=== PATIENT | male | born 1990 | race Caucasian/White ===

== ENCOUNTER 2019-05-17 11:07 | Outpatient (NON) | payer OTHER, SELFPAY ==
[2019-05-18 15:13] LABS: Pan-SARS RNA: NEGATIVE (NEGATIVE); SARS-CoV-2 RNA: NEGATIVE (NEGATIVE)
== END 2019-05-17 11:08 ==
PROVIDERS: PCP Family Medicine; Visit Provider Family Medicine
DX: R09.89 Other specified symptoms and signs involving the circulatory and respiratory systems (principal); Z20.828 Contact with and (suspected) exposure to other viral communicable diseases
CPT/HCPCS: 87635; C9803; U0002; U0003

== ENCOUNTER 2019-10-11 14:35 | Emergency (ER) | payer BC, SELFPAY ==
--- NOTE | ~2019-10-11 | XR_ITS ---
EXAMINATION: XR chest 2V DATE: 10/11/2019 15:06 INDICATION: Chest pain TECHNIQUE: PA and lateral views of the chest are obtained. COMPARISON: 03/12/2014 FINDINGS: The lungs are free of acute opacities. There is no pleural effusion or pneumothorax. The ca rdiomediastinal silhouette is normal. The visualized bones and soft tissues are unremarkable. IMPRESSION: 1. No acute cardiopulmonary abnormality. Reviewed, dictated and finalized at location A.
--- NOTE | 2019-10-11 14:41 | ECG_ITS ---
Measurements Intervals [place] Rate: 89 P: 64 [place]: 140 QRS: 26 QRSD: 94 T: 25 QT: 334 QTc: 407 Interpretive Statements SINUS RHYTHM FREQUENT ATRIAL PREMATURE COMPLEXES INCOMPLETE RIGHT BUNDLE BRANCH BLOCK LOW QRS VOLTAGE IN PRECORDIAL LEADS BASELINE ARTIFACT- I, III, AVL ABNORMAL ECG Electronically Signed On 10-11-2019 16:31:21 CDT by Shade Martinez D.O.
[2019-10-11 14:42] VITALS: BP 142/82; PULSE 93; RESP 29; TEMP 36.8; O2SAT 98
[2019-10-11 14:50] VITALS: PULSE 84
[2019-10-11 14:51] VITALS: BP 142/82; PULSE 102; RESP 17; O2SAT 100
[2019-10-11 15:02] LABS: Basophils Percent Auto 0.4 % (0.2-1.2); Eosinophils Absolute Auto 0.1 K/mm3 (0-0.3); Eosinophils Percent Auto 1.4 % (0-4.4); Hematocrit 43.1 % (42.0-52.0); Hemoglobin 14.8 g/dL (14.0-18.0); Immature Granulocyte Absolute 0.05 K/mm3 (0.00-0.031); Immature Granulocyte Percent A 0.6 % (0-0.5); Lymphocytes Absolute Auto 1.79 K/mm3 (0.9-3.2); Lymphocytes Percent Auto 21.4 % (18.3-44.2); Mean Corpuscular HGB Conc 34.3 g/dl (32-36); Mean Corpuscular Volume 87.4 fl (80-100); Mean Platelet Volume 10.3 fl (7.4-10.4); Monocytes Absolute Auto 0.4 K/mm3 (0.1-0.6); Monocytes Percent Auto 5.3 % (2.6-8.5); Neutrophils Absolute Auto 5.9 K/mm3 (1.3-6.7); Neutrophils Percent Auto 70.9 % (45.5-73.1); Platelet Count Result 275 k/mm3 (150-375); Red Blood Count 4.93 M/mm3 (4.6-6.20); Red Cell Distribution Width 13.3 % (11.5-14.5); White Blood Count 8.4 K/mm3 (4.5-10.0)
[2019-10-11 15:12] LABS: Anion Gap 8 mmol/L (8-16); Blood Urea Nitrogen 14 mg/dL (9-20); Calcium 8.8 mg/dL (8.4-10.2); Carbon Dioxide 28 mmol/L (22-30); Chloride 101 mmol/L (98-107); Estimated CRCL calculation 95 ml/min; Estimated Glomerular Filt Rate > 60; Glucose 111 mg/dL (75-110); Potassium 3.4 mmol/L (3.4-5.0); Sodium 137 mmol/L (137-145)
[2019-10-11 15:15] LABS: Prothrombin Time 12.7 Seconds (11.1-14.7)
--- NOTE | 2019-10-11 15:15 | ED.CHESTPAIN ---
HPI - Chest Pain General Chief Complaint: Chest Pain Stated Complaint: cp Time Seen by Provider: 10/11/19 15:15 Source: patient Mode of arrival: ambulatory Limitations: no limitations History of Present Illness HPI narrative: 29 years old white male presents with intermittent shooting pain bilaterally started 2 weeks ago worse with the stress. Patient was started on Lexapro 10 mg a day 3 weeks ago for anxiety and depression. Patient denies any fever, chills, nausea, vomiting, shortness of breath, back pain or abdominal pain. Patient also denied any history of drug use except for marijuana. EKG on arrival showed normal sinus rhythm rate 89 bpm with frequent supraventricular premature complexes. Related Data Home Medications Medication Instructions Recorded Confirmed escitalopram oxalate [Lexapro] mg DAILY 10/11/19 Allergies Allergy/AdvReac Type Severity Reaction Status Date / Time No Known Allergies Allergy Unverified 10/11/19 14:48 Review of Systems Review of Systems: Narrative: CONSTITUTIONAL: Denies fever, chills, or sweats. EYES: Denies visual changes, redness, or discharge. ENT: Denies rhinorrhea, congestion, sore throat, or otalgia. CARDIOVASCULAR: Denies chest pain, palpitations, or edema. RESPIRATORY: Denies cough or dyspnea. GASTROINTESTINAL: Denies abdominal pain, nausea, vomiting, or diarrhea. GENITOURINARY: Denies dysuria or hematuria. SKIN: Denies rash or itching. MUSCULOSKELETAL: Denies back pain, joint pain, or myalgia. NEUROLOGIC: Denies headache, numbness, or weakness. PSYCHIATRIC: Denies anxiety or depression. [facility] Past Medical History Medical History (Updated 10/11/19 @ 15:32 by Julio Miller MD) Anxiety Depression Social History Social History Gender identity (if verbalized by the patient): Male Sexual Orientation (if Verbalized by the Patient): Straight or Heterosexual Exam Narrative: Exam Narrative: General appearance: Well-developed, well-nourished Skin: Normal color Head: Normocephalic, nontraumatic Eyes: Clear conjunctiva ENT: Oropharynx normal, ears normal, nose normal Neck: Supple, nontender Chest and respiratory: Airway patent, no respiratory distress, no accessory muscle use Heart: Regular rate/rhythm Abdomen: Soft, nontender, no organomegaly, quiet bowel sounds Vascular: Normal peripheral pulses, normal capillary refill. Musculoskeletal: Normal range of motion, nontender back Neurologic: Alert and oriented ?3, [employer] is normal as tested, no gross motor deficit Course Course Emergency Course: Stable Vital Signs Vital signs: Vital Signs Temperature 36.8 C 10/11/19 14:42 Pulse Rate 93 10/11/19 14:42 Respiratory Rate 29 H 10/11/19 14:42 Blood Pressure 142/82 H 10/11/19 14:42 Pulse Oximetry 98 10/11/19 14:42 Temperature 36.8 C 10/11/19 14:42 Pulse Rate 102 H 10/11/19 14:51 Respiratory Rate 17 10/11/19 14:51 Blood Pressure 142/82 H 10/11/19 14:51 Pulse Oximetry 100 10/11/19 14:51 MDM - Chest Pain MDM Narrative Medical decision making narrative: Patient does not have any coronary artery risk factors except positive family history for coronary artery disease. Patient started on antidepression medication 3 weeks ago. Anxiety/depression is my concern. My plan to get labs, chest x-ray and EKG. Then discharge patient on Lexapro 20 mg once a day instead of 10 mg. Differential Diagnosis Differential diagnosis: Likely atypical chest pain, costochondritis, chest pain and other (Anxiety, depression) Lab Data Result diagrams: 10/11/19 14:54 10/11/19 14:54 Labs: Lab Results
[2019-10-11 15:16] LABS: Partial Thromboplastin Time 28.6 SECONDS (22.3-36.8)
[2019-10-11] MEDS: ASPIRIN 81 MG CHEWABLE TABLET 324 MG PO (15:21)
[2019-10-11 15:24] LABS: Troponin I < 0.012 ng/mL (0.000-0.034)
[2019-10-11 16:07] VITALS: BP 114/74; PULSE 86; RESP 12; O2SAT 96
[2019-10-11 16:40] LABS: Amphetamine Screen Urine Negative (Negative); Barbiturate Screen Urine Negative (Negative); Benzodiazepines Screen Urine Negative (Negative); Cannabinoid Screen Urine Positive (Negative); Cocaine Screen Urine Negative (Negative); Methadone Screen Urine Negative (Negative); Opiate Screen Urine Negative (Negative); Phencyclidine Screen Urine Negative (Negative)
== END 2019-10-11 16:09 | disposition home or self-care (01) ==
PROVIDERS: Emergency Medicine; Emergency Provider Emergency Medicine; PCP Family Medicine
DX: R07.89 Other chest pain (principal); F41.9 Anxiety disorder, unspecified; F32.9 Major depressive disorder, single episode, unspecified; I49.1 Atrial premature depolarization; I45.10 Unspecified right bundle-branch block
CPT/HCPCS: 36415; 71046; 80048; 80307; 84484; 85025; 85610; 85730; 93005; 99284; A9270

== ENCOUNTER 2019-10-28 14:15 | Emergency (ER) | payer SELFPAY ==
[2019-10-28 14:24] VITALS: BP 127/78; PULSE 87; RESP 16; TEMP 35.8; O2SAT 99
--- NOTE | 2019-10-28 14:24 | ED.EYEPROB ---
HPI - Eye Problem General Chief complaint: Eye Problems Stated complaint: right pain Time Seen by Provider: 10/28/19 14:22 Source: patient and RN notes reviewed Mode of arrival: ambulatory Limitations: no limitations History of Present Illness HPI Narrative: 29-year-old male presents with concern for right eye pain, redness, watery discharge. Reports he wears contact lenses, does not take his contact lenses out at night. 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 He denies any known injury to his eye. Denies vision changes. Reports light sensitivity MD chief complaint: eye pain Related Data Home Medications Medication Instructions Recorded Confirmed escitalopram oxalate [Lexapro] mg DAILY 10/11/19 Allergies Allergy/AdvReac Type Severity Reaction Status Date / Time No Known Allergies Allergy Unverified 10/11/19 14:48 Review of Systems Review of Systems: Narrative: CONSTITUTIONAL: Denies malaise, chills, sweats, or fever. EYES: Denies visual changes. Reports right eye pain, redness, watery discharge. ENT: Denies rhinorrhea, congestion, sinus pain, otalgia or sore throat. SKIN: Denies rash or itching. All systems reviewed & are unremarkable except as noted in HPI and below PMFSH Past Medical History Medical History (Updated 10/28/19 @ 14:34 by Nydia Diaz NP) Anxiety Depression Social History Social History Gender identity (if verbalized by the patient): Male Comments At time of signature, agree with nursing past medical, surgical, social and family history. There is no relevant family history pertinent to the presenting complaint Exam Narrative: Exam Narrative: GENERAL: Well-appearing, well-nourished, and in no acute distress. HEAD: Normocephalic, atraumatic. EYES: PERRLA and EOMI. No nystagmus. Left eye sclera conjunctivae clear. Right eye sclera injected, foreign body noted upon Benson lamp exam, see note ENT: Mucous membranes moist. NECK: Supple. CHEST: No respiratory distress. Speaks in full sentences. HEART: Regular rate and rhythm. SKIN: Warm, dry, no rash. NEURO: Alert and oriented x3. PSYCH: Normal mood and affect Course Course Emergency Course: Patient is aware of diagnosis, understands and agrees to treatment plan. Anticipatory guidance given. Patient agrees to follow-up as directed and is aware of reasons to seek care at the emergency department. Portions of this record may have been created with voice recognition software Vital Signs Vital signs: Vital Signs Temperature 96.5 F L 10/28/19 14:24 Pulse Rate 87 10/28/19 14:24 Respiratory Rate 16 10/28/19 14:24 Blood Pressure 127/78 10/28/19 14:24 Pulse Oximetry 99 10/28/19 14:24 Temperature 96.5 F L 10/28/19 14:24 Pulse Rate 87 10/28/19 14:24 Respiratory Rate 16 10/28/19 14:24 Blood Pressure 127/78 10/28/19 14:24 Pulse Oximetry 99 10/28/19 14:24 Reviewed. MDM - Eye Problem MDM Narrative Medical decision making narrative: Consideration of the following conditions may be warranted for the presenting problem, they are not final diagnoses: Bacterial conjunctivitis, allergic conjunctivitis, viral conjunctivitis, foreign body, blepharitis, chalazion, hordeolum, corneal abrasion. Exam findings show no acute concerns or changes; patient is non-toxic appearing and is in no distress. Patient is appropriate for outpatient treatment and follow-up. Critical Care Time Critical Care Time Critical Care Time: No Discharge Plan Discharge Clinical Impression: Corneal abrasion Qualifiers: Encounter type: initial encounter Laterality: right Qualified Code(s): S05.01XA - Injury of conjunctiva and corneal abrasion without foreign body, right eye, initial encounter Patient Disposition: Home, Self-Care Condition: Stable Instructions: Corneal Abrasion (ED) Additional Instructions: Corneal abrasions will heal in 1-2 days. Keep your eye shut and wea
== END 2019-10-28 14:37 | disposition home or self-care (01) ==
PROVIDERS: Emergency Provider Nurse Practitioner
DX: S05.01XA Injury of conjunctiva and corneal abrasion without foreign body, right eye, initial encounter (principal); X58.XXXA Exposure to other specified factors, initial encounter; F41.9 Anxiety disorder, unspecified; F32.9 Major depressive disorder, single episode, unspecified
CPT/HCPCS: 99213; A9270; G0463

== ENCOUNTER 2021-02-22 11:38 | Emergency (ER) | payer SELFPAY ==
--- NOTE | ~2021-02-22 | US_ITS ---
US abdomen limited INDICATION: Right upper quadrant pain. Nausea and vomiting. PROCEDURE: Realtime right upper abdominal ultrasound. COMPARISON: No prior studies for comparison. FINDINGS: The pancreas is normal without focal mass or pancreatic ductal dilation. Liver echotexture is heterogeneous and increased, consistent with fatty infiltration. There is normal directional anitra w in the portal vein. The gallbladder is normal without stones, gallbladder wall thickening or pericholecystic fluid. Comm on bile duct measures 4 mm. No sonographic Gamble's sign. IMPRESSION: 1: Hepatic steatosis. Reviewed, dictated and finalized at location A. 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
[2021-02-22 11:41] VITALS: BP 144/84; PULSE 89; RESP 18; TEMP 36.4; O2SAT 100
[2021-02-22] MEDS: SODIUM CHLORIDE 0.9% IV 1,000 ML 999 ML IV CONT (11:52)
[2021-02-22] MEDS: FAMOTIDINE 20 MG/2 ML VIAL IV PUSH (11:54)
[2021-02-22] MEDS: ONDANSETRON INJ 4 MG/2 ML VIAL IV PUSH (11:54)
[2021-02-22 12:01] LABS: Basophils Absolute Auto 0.1 K/mm3 (0.0-0.1); Eosinophils Absolute Auto 0.2 K/mm3 (0-0.3); Eosinophils Percent Auto 2.4 % (0-4.4); Hematocrit 48.3 % (42.0-52.0); Hemoglobin 16.1 g/dL (14.0-18.0); Immature Granulocyte Absolute 0.16 K/mm3 (0.00-0.031); Immature Granulocyte Percent A 1.6 % (0-0.5); Lymphocytes Absolute Auto 2.76 K/mm3 (0.9-3.2); Lymphocytes Percent Auto 28.4 % (18.3-44.2); Mean Corpuscular HGB Conc 33.3 g/dl (32-36); Mean Corpuscular Hemoglobin 29.3 pg (26-34); Mean Platelet Volume 10.2 fl (7.4-10.4); Monocytes Absolute Auto 0.6 K/mm3 (0.1-0.6); Neutrophils Absolute Auto 5.9 K/mm3 (1.3-6.7); Neutrophils Percent Auto 60.6 % (45.5-73.1); Platelet Count Result 316 k/mm3 (150-375); Red Blood Count 5.49 M/mm3 (4.6-6.20); Red Cell Distribution Width 13.2 % (11.5-14.5); White Blood Count 9.7 K/mm3 (4.5-10.0)
[2021-02-22 12:03] LABS: Add Urine Microscopic? NO; Appearance Urine Clear (Clear); Bilirubin Urine Negative (Negative); Blood Urine Negative (Negative); Color Urine Yellow (Yellow); Glucose Urine UA Negative (Negative); Ketones Urine Negative (Negative); Leukocyte Esterase Ur Negative LEU/UL (Negative); Nitrate Urine Negative (Negative); Protein Urine Negative (Negative); Specific Grav Ur 1.021 (1.001-1.035); Urobilinogen Urine Negative mg/dL (<2.0)
[2021-02-22 12:09] LABS: Alanine Aminotransferase 61 U/L (4-50); Albumin Level 4.6 g/dL (3.5-5.1); Alkaline Phosphatase 75 U/L (38-126); Anion Gap 11 mmol/L (8-16); Aspartate Amino Transferase 34 U/L (17-59); Bilirubin,Total 0.5 mg/dL (0.2-1.3); Blood Urea Nitrogen 17 mg/dL (9-20); Calcium 9.4 mg/dL (8.4-10.2); Carbon Dioxide 28 mmol/L (22-30); Chloride 101 mmol/L (98-107); Estimated CRCL calculation 108 ml/min; Estimated Glomerular Filt Rate > 60; Glucose 103 mg/dL (65-110); Lipase 75 U/L (23-300); Potassium 3.9 mmol/L (3.4-5.0); Sodium 140 mmol/L (137-145)
--- NOTE | 2021-02-22 12:47 | ED.ABDPAIN ---
HPI - Abdominal Pain General Chief Complaint: Abdominal Pain Stated Complaint: N/V ABD PAIN Time Seen by Provider: 02/22/21 11:42 Source: patient Mode of arrival: ambulatory Limitations: no limitations History of Present Illness HPI narrative: This is a 30 year old male that presents to the ER for RUQ pain. Reports a sharp intermittent pain in the RUQ. Started after having a couple episodes of vomiting yesterday. Reports he has been having some cold symptoms over the last couple of days. He was seen for this yesterday at another facility and had a negative COVID swab. He has also had some diarrhea. Denies fever or dysuria. Related Data Allergies Allergy/AdvReac Type Severity Reaction Status Date / Time No Known Allergies Allergy Unverified 02/22/21 11:44 Review of Systems Review of Systems: CONSTITUTIONAL: Denies fever GASTROINTESTINAL: Reports abdominal pain, nausea, vomiting, and diarrhea. GENITOURINARY: Denies dysuria All systems reviewed & are unremarkable except as noted in HPI and below PMFSH Past Medical History Medical History (Updated 02/22/21 @ 14:57 by Kassy Wynne PA-C) Anxiety Depression Social History Social History (Updated 02/22/21 @ 12:52 by Kassy Wynne PA-C) Substance use: former Substance use type: marijuana Gender identity (if verbalized by the patient): Male Sexual Orientation (if Verbalized by the Patient): Straight or Heterosexual Exam Narrative: GENERAL: Well-appearing, well-nourished, and in no acute distress. HEAD: Normocephalic, atraumatic. EYES: EOMI. CHEST: Clear to auscultation. No respiratory distress. No wheezes rales or rhonchi HEART: Regular rate and rhythm. No murmur heard. Normal peripheral pulses. ABDOMEN: Soft, nondistended, normal active bowel sounds. Tender to palpation in the right upper quadrant, without guarding EXTREMITIES: Normal range of motion. No edema. SKIN: Warm, dry, no rash. NEURO: No focal deficits. Alert and oriented x3. PSYCH: Normal mood and affect Course Vital Signs Vital signs: Vital Signs Temperature 97.5 F L 02/22/21 11:41 Pulse Rate 89 02/22/21 11:41 Respiratory Rate 18 02/22/21 11:41 Blood Pressure 144/84 H 02/22/21 11:41 Pulse Oximetry 100 02/22/21 11:41 Temperature 97.5 F L 02/22/21 11:41 Pulse Rate 89 02/22/21 11:41 Respiratory Rate 18 02/22/21 11:41 Blood Pressure 144/84 H 02/22/21 11:41 Pulse Oximetry 100 02/22/21 11:41 MDM - Abdominal Pain MDM Narrative Medical decision making narrative: Patient presents to the emergency department for upper abdominal pain, nausea and vomiting. He is afebrile and nontoxic-appearing. CBC and metabolic panel without concerning findings. Lipase is normal. UA without evidence of infection. Right upper quadrant ultrasound shows hepatic steatosis. Likely reason for patient's mild elevation in ALT. Patient was updated on case findings. Hydrated and given antiemetic with relief. Able to tolerate p.o. challenge. Instructed on continued care of viral infection. He is to follow-up with primary care doctor. He was given warnings to return to the ER Lab Data Attestation: I reviewed the patient's lab results. Result diagrams: 02/22/21 11:51 02/22/21 11:51 Labs: Lab Results 02/22/21 02/22/21 02/22/21 Range/Units 11:51 11:51 11:51 WBC 9.7 (4.5-10.0) K/mm3 RBC 5.49 (4.6-6.20) M/mm3 Hgb 16.1 (14.0-18.0) g/dL Hct 48.3 (42.0-52.0) % MCV 88.0 (80-100) fl MCH 29.3 (26-34) pg MCHC 33.3 (32-36) g/dl RDW 13.2 (11.5-14.5) % Plt Count 316 (150-375) k/mm3 MPV 10.2 (7.4-10.4) fl Immature Gran % (Auto) 1.6 H (0-0.5) % Neut % (Auto) 60.6 (45.5-73.1) % Lymph % (Auto) 28.4 (18.3-44.2) % [place] % (Auto) 6.0 (2.6-8.5) % Eos % (Auto) 2.4 (0-4.4) % Baso % (Auto) 1.0 (0.2-1.2) % Lymph # (Auto) 2.76 (0.9-3.2) K/mm3 [place] # (Auto) 0.6 (0.1-0.6) K/mm3 Eos
[2021-02-22 15:53] VITALS: BP 128/86; PULSE 84; RESP 15; O2SAT 97
== END 2021-02-22 15:55 | disposition home or self-care (01) ==
PROVIDERS: Physician Assistant; Emergency Provider Emergency Medicine
DX: K52.9 Noninfective gastroenteritis and colitis, unspecified (principal); K76.0 Fatty (change of) liver, not elsewhere classified
CPT/HCPCS: 36415; 76705; 80053; 81003; 83690; 85025; 96365; 96366; 96375; 99284; J0131; J2405; J7030

== ENCOUNTER 2021-04-16 14:32 | Emergency (ER) | payer SELFPAY ==
--- NOTE | ~2021-04-16 | XR_ITS ---
EXAMINATION: XR chest 2V DATE: 04/16/2021 14:50 INDICATION: Palpitations. Dizziness. TECHNIQUE: Frontal and lateral views of the chest were obtained. COMPARISON: Chest 2 views 10/11/2019 FINDINGS: The chest demonstrates clear lungs without pneumonia, pleural effusion, or pneumothorax. Th e heart size is normal. IMPRESSION: 1. No acute cardiopulmonary disease. Reviewed, dictated and finalized at location A. 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
[2021-04-16 14:35] VITALS: BP 137/89; PULSE 90; RESP 18; TEMP 36.6; O2SAT 99
--- NOTE | 2021-04-16 14:38 | ECG_ITS ---
Measurements Intervals [place] Rate: 91 P: 50 [place]: 141 QRS: 25 QRSD: 94 T: 35 QT: 341 QTc: 421 Interpretive Statements SINUS RHYTHM WITH OCCASIONAL SUPRAVENTRICULAR PREMATURE COMPLEXES INCOMPLETE RIGHT BUNDLE-BRANCH BLOCK BORDERLINE ECG COMPARED TO ECG 10/11/2019 14:43:05 NO SIGNIFICANT CHANGES Electronically Signed On 04-16-2021 16:19:27 CUSTODIAL WORKER by Sylvester Alicea M.D.
--- NOTE | 2021-04-16 14:52 | ED.CHESTPAIN ---
HPI - Chest Pain General Chief Complaint: Chest Pain Stated Complaint: chest pain, dizzy Time Seen by Provider: 04/16/21 14:49 Source: patient Mode of arrival: ambulatory Limitations: no limitations History of Present Illness HPI narrative: Patient complaining of I think I overdosed on caffeine , describes as chest tightness, across the chest, nonradiating, mild, accompanied by nausea and dizziness that started after consuming a Bang drink, and 2 cups of Miu with caffeine today. Patient denies any shortness of breath, abdominal pain, vomiting, diaphoresis, fever or chills. Related Data Home Medications Medication Instructions Recorded Confirmed No Home Medications 04/16/21 04/16/21 Allergies Allergy/AdvReac Type Severity Reaction Status Date / Time No Known Allergies Allergy Verified 04/16/21 15:15 Review of Systems Review of Systems: All systems reviewed & are unremarkable except as noted in HPI and below Constitutional: Constitutional: Denies body ache(s), Denies chills, Denies excessive sweating, Denies fatigue, Denies fever(s), Denies headache(s), Denies lethargy, Denies malaise, Denies weakness and Denies weight loss Eyes: Eyes: Denies blurry vision, Denies change in vision and Denies loss of vision ENT: Denies dizziness, Denies ear discharge, Denies headache(s), Denies lip swelling, Denies epistaxis, Denies nasal congestion, Denies neck pain, Denies throat swelling and Denies tongue swelling Cardiovascular: Cardiovascular: Denies chest pain with activity, Denies diaphoresis, Denies rapid heart rate, Denies edema, Denies irregular heart rhythm, Denies lightheadedness, Denies palpitations, Denies dyspnea and Denies dyspnea on exertion Respiratory: Respiratory: Denies chest congestion, Denies cough, Denies hemoptysis, Denies dyspnea and Denies dyspnea on exertion Gastrointestinal: Gastrointestinal: Denies abdominal pain, Denies melena, Denies hematochezia, Denies diarrhea, Denies vomiting and Denies hematemesis Musculoskeletal: Musculoskeletal: Denies abnormal gait, Denies deformity, Denies joint swelling, Denies limited range of motion, Denies neck pain and Denies numbness Neurologic: Denies Abnormal speech present, Denies abnormal gait, Denies confusion, Denies headache(s), Denies focal weakness, Denies loss of vision, Denies numbness, Denies Other visual disturbances, Denies Sensory deficit (Neuro) and Denies weakness Psychiatric: Psychiatric: Denies confusion, Denies depression, Denies auditory hallucinations, Denies homicidal ideation and Denies suicidal ideation Endocrine: Endocrine: Denies cold intolerance, Denies excessive sweating, Denies fatigue, Denies heat intolerance and Denies palpitations Hematologic/Lymphatic: Hematologic/Lymphatic: Denies easy bleeding and Denies easy bruising Allergic/Immunologic: Allergic/Immunologic: Denies lip swelling, Denies throat swelling and Denies tongue swelling PMFSH Past Medical History Medical History Anxiety Depression Social History Social History Substance use: former Substance use type: marijuana Gender identity (if verbalized by the patient): Male Sexual Orientation (if Verbalized by the Patient): Straight or Heterosexual Comments Social history: Smoker, occasional EtOH use, no drug use Family history: Positive for coronary disease Exam Const: General: cooperative, healthy appearing, comfortable, no acute distress, well developed, alert and awake; No confusion Orientation/consciousness: oriented to person, oriented to place, oriented to time, patient oriented x3 and No confusion Limitations: no limitations HENMT: Head: normal to inspection, normocephalic and atraumatic Ears: hearing grossly normal bilaterally, TM normal on the right and TM normal on the left General nose exam: Normal external nose present, Normal nares present and No n
[2021-04-16 15:04] LABS: Basophils Absolute Auto 0.1 K/mm3 (0.0-0.1); Basophils Percent Auto 0.6 % (0.2-1.2); Eosinophils Absolute Auto 0.2 K/mm3 (0-0.3); Eosinophils Percent Auto 1.7 % (0-4.4); Hemoglobin 15.7 g/dL (14.0-18.0); Immature Granulocyte Absolute 0.13 K/mm3 (0.00-0.031); Lymphocytes Absolute Auto 2.72 K/mm3 (0.9-3.2); Lymphocytes Percent Auto 20.7 % (18.3-44.2); Mean Corpuscular HGB Conc 33.4 g/dl (32-36); Mean Corpuscular Hemoglobin 29.6 pg (26-34); Mean Corpuscular Volume 88.7 fl (80-100); Mean Platelet Volume 10.3 fl (7.4-10.4); Monocytes Absolute Auto 0.9 K/mm3 (0.1-0.6); Monocytes Percent Auto 6.7 % (2.6-8.5); Neutrophils Absolute Auto 9.1 K/mm3 (1.3-6.7); Neutrophils Percent Auto 69.3 % (45.5-73.1); Platelet Count Result 315 k/mm3 (150-375); Red Cell Distribution Width 13.4 % (11.5-14.5); White Blood Count 13.2 K/mm3 (4.5-10.0)
[2021-04-16 15:14] VITALS: PULSE 100
[2021-04-16 15:14] LABS: Alanine Aminotransferase 60 U/L (4-50); Albumin Level 4.8 g/dL (3.5-5.1); Alkaline Phosphatase 77 U/L (38-126); Anion Gap 8 mmol/L (8-16); Aspartate Amino Transferase 41 U/L (17-59); Bilirubin,Total 0.4 mg/dL (0.2-1.3); Blood Urea Nitrogen 20 mg/dL (9-20); Calcium 9.2 mg/dL (8.4-10.2); Carbon Dioxide 29 mmol/L (22-30); Chloride 100 mmol/L (98-107); Estimated CRCL calculation 108 ml/min; Estimated Glomerular Filt Rate > 60; Glucose 94 mg/dL (65-110); Lipase 81 U/L (23-300); Potassium 3.7 mmol/L (3.4-5.0); Sodium 137 mmol/L (137-145)
[2021-04-16] MEDS: SODIUM CHLORIDE 0.9% IV 1,000 ML 999 ML IV CONT (15:16)
[2021-04-16 15:21] LABS: Prothrombin Time 12.5 Seconds (11.1-14.7)
[2021-04-16 15:22] LABS: Partial Thromboplastin Time 29.2 SECONDS (22.3-36.8)
[2021-04-16 15:25] LABS: Troponin I < 0.012 ng/mL (0.000-0.034)
[2021-04-16 17:35] VITALS: BP 160/98; PULSE 94; RESP 16; O2SAT 98
== END 2021-04-16 17:35 | disposition home or self-care (01) ==
PROVIDERS: Emergency Provider Emergency Medicine
DX: R07.89 Other chest pain (principal); F17.200 Nicotine dependence, unspecified, uncomplicated; T43.615A Adverse effect of caffeine, initial encounter; I45.10 Unspecified right bundle-branch block; I49.1 Atrial premature depolarization
CPT/HCPCS: 36415; 71046; 80053; 83690; 84484; 85025; 85610; 85730; 93005; 96360; 99284; J7030

== ENCOUNTER 2021-04-22 13:20 | Emergency (ER) | payer SELFPAY ==
[2021-04-22 13:28] VITALS: BP 139/70; PULSE 84; RESP 18; TEMP 36.8; O2SAT 100
--- NOTE | 2021-04-22 13:35 | ED.URI ---
HPI - URI/Sore Throat General Chief Complaint: Upper Respiratory Infection Stated Complaint: cough/sore throat Time Seen by Provider: 04/22/21 13:35 Source: patient Mode of arrival: ambulatory Limitations: no limitations History of Present Illness HPI Narrative: 31-year-old male presents with complaint of cough and sore throat for 1 week. Reports history of bronchitis. Usually gets a Z-Clif. Has been using [id number] cough medication with Mucinex. Denies shortness of breath. Also would like his scalp looked at, has itching to scalp. All systems reviewed and negative except as noted above. Related Data Allergies Allergy/AdvReac Type Severity Reaction Status Date / Time No Known Allergies Allergy Verified 04/22/21 13:30 Review of Systems Review of Systems: CONSTITUTIONAL: Denies fever, chills, or sweats. EYES: Denies visual changes, redness, or discharge. ENT: Denies rhinorrhea, congestion, sore throat, or otalgia. CARDIOVASCULAR: Denies chest pain, palpitations, or edema. RESPIRATORY: Reports cough. Denies dyspnea. GASTROINTESTINAL: Denies abdominal pain, nausea, vomiting, or diarrhea. GENITOURINARY: Denies dysuria or hematuria. SKIN: Reports rash or itching to scalp. MUSCULOSKELETAL: Denies back pain, joint pain, or myalgia. NEUROLOGIC: Denies headache, numbness, or weakness. PSYCHIATRIC: Denies anxiety or depression. All other systems reviewed are negative, except as documented in HPI. [facility] Past Medical History Medical History Anxiety Depression Social History Social History Substance use: former Substance use type: marijuana Gender identity (if verbalized by the patient): Male Sexual Orientation (if Verbalized by the Patient): Straight or Heterosexual Comments At time of signature, agree with nursing past medical, surgical, social and family history. There is no relevant family history pertinent to the presenting complaint. Exam Narrative: GENERAL: This is a well-nourished, well-developed patient, in no apparent distress. HEAD: normocephalic, atraumatic. EYES: PERRL. Sclera clear/white. Vision is grossly intact. EARS: External ears normal, auditory canals clear and without drainage, TMs normal without perforation. Hearing grossly intact. NOSE: External nose normal with no obvious nasal discharge, nares without redness, no rhinorrhea. THROAT: Mucous membranes moist, erythema to posterior pharynx with swollen uvula. Erythema to uvula. NECK: Neck supple, non-tender without lymphadenopathy, masses or thyromegaly. CARDIOVASCULAR: Regular rate and rhythm without murmurs, gallops, or rubs. RESPIRATORY: Clear to auscultation. Breath sounds equal bilaterally. No wheezes, rales, or rhonchi. GASTROINTESTINAL: Abdomen soft, non-tender, nondistended. Bowel sounds are active. No hepato-splenomegaly, or palpable masses. No guarding. SKIN: warm, Dry, intact, good texture and turgor. Dry, dandruff to scalp. Erythematous circular lesions with central clearing and raised border to posterior scalp. NEURO: awake, alert, and oriented to person, place and time. There were no obvious focal neurologic abnormalities. EXTREMITIES: No joint tenderness, effusion, or edema noted. No calf tenderness. Negative Homans sign bilaterally. BACK: Nontender without deformity. No CVA tenderness. Course Course Level of Care: Express Care Visit Vital Signs Vital signs: Vital Signs Temperature 36.8 C 04/22/21 13:28 Pulse Rate 84 04/22/21 13:28 Respiratory Rate 18 04/22/21 13:28 Blood Pressure 139/70 04/22/21 13:28 Pulse Oximetry 100 04/22/21 13:28 Temperature 36.8 C 04/22/21 13:28 Pulse Rate 84 04/22/21 13:28 Respiratory Rate 18 04/22/21 13:28 Blood Pressure 139/70 04/22/21 13:28 Pulse Oximetry 100 04/22/21 13:28 Reviewed MDM - URI/Sore Throat MDM Narrative Medical decision making n
== END 2021-04-22 13:49 | disposition home or self-care (01) ==
PROVIDERS: Emergency Provider Nurse Practitioner Family
DX: J20.9 Acute bronchitis, unspecified (principal); K12.2 Cellulitis and abscess of mouth; B35.0 Tinea barbae and tinea capitis
CPT/HCPCS: 99213; G0463

== ENCOUNTER 2021-05-16 10:38 | Emergency (ER) | payer SELFPAY ==
[2021-05-16 10:56] VITALS: BP 135/81; PULSE 102; RESP 18; O2SAT 98
--- NOTE | 2021-05-16 11:05 | ED.URI ---
HPI - URI/Sore Throat General Chief Complaint: Unspecified Stated Complaint: throat pain Time Seen by Provider: 05/16/21 10:50 Source: patient History of Present Illness HPI Narrative: Patient presents with a sore throat. Patient reports he had symptoms for 4 to 5 days getting progressively worse reports a mild cough. His pain is sharp, constant, worse with swallowing, no radiation. Reports symptoms started when he was chewing on his deck he thinks maybe it splintered and he swallowed part of it. He has not noted any fevers denies any nausea vomiting or diarrhea denies any shortness of breath Related Data Allergies Allergy/AdvReac Type Severity Reaction Status Date / Time No Known Allergies Allergy Verified 05/16/21 11:03 Review of Systems Review of Systems: CONSTITUTIONAL: Denies fever, chills, or sweats. EYES: Denies visual changes, redness, or discharge. ENT: Denies rhinorrhea, congestion, or otalgia. CARDIOVASCULAR: Denies chest pain, palpitations, or edema. RESPIRATORY: Denies dyspnea. GASTROINTESTINAL: Denies abdominal pain, nausea, vomiting, or diarrhea. GENITOURINARY: Denies dysuria or hematuria. SKIN: Denies rash or itching. MUSCULOSKELETAL: Denies back pain, joint pain, or myalgia. NEUROLOGIC: Denies headache, numbness, dizziness, or weakness. PSYCHIATRIC: Denies anxiety or depression. All systems reviewed & are unremarkable except as noted in HPI and below PMFSH Past Medical History Medical History Anxiety Depression Social History Social History Substance use: former Substance use type: marijuana Gender identity (if verbalized by the patient): Male Sexual Orientation (if Verbalized by the Patient): Straight or Heterosexual Exam Narrative: GENERAL: Well-appearing, well-nourished, and in no acute distress. HEAD: Normocephalic, atraumatic. EYES: PERRLA and EOMI. ENT: Nares clear, no rhinorrhea or epistaxis. Diffuse erythema mild edema in the posterior pharynx no exudates diffuse tenderness along the anterior cervical chain no focal lymphadenopathy appreciated NECK: Supple. No masses. No JVD CHEST: Clear to auscultation. No respiratory distress. No wheezes rales or rhonchi HEART: Regular rate and rhythm. No murmur heard. Normal peripheral pulses. ABDOMEN: Soft, nontender, nondistended, normal active bowel sounds. EXTREMITIES: Normal range of motion. No edema. SKIN: Warm, dry, no rash. NEURO: No focal deficits. Alert and oriented x3. PSYCH: Normal mood and affect. Course Reevaluation(s) Reevaluation #1: Patient sleeping easily aroused patient reports feeling symptoms are improved. Results and plan reviewed with patient. Patient is comfortable outpatient plan. Date: 05/16/21 Time: 12:09 Vital Signs Vital signs: Vital Signs Pulse Rate 102 H 05/16/21 10:56 Respiratory Rate 18 05/16/21 10:56 Blood Pressure 135/81 05/16/21 10:56 Pulse Oximetry 98 05/16/21 10:56 Pulse Rate 88 05/16/21 12:27 Respiratory Rate 18 05/16/21 12:27 Blood Pressure 137/86 05/16/21 12:27 Pulse Oximetry 99 05/16/21 12:27 MDM - URI/Sore Throat MDM Narrative Medical decision making narrative: H&P as above, vss, pt looks clinically well, exam with diffuse erythema in the posterior pharynx no uvula deviation, labs with negative rapid strep and mono, additional labs/img considered. Symptomatic relief available as needed, on reevaluation pt continues to looks clinically well. Suspect viral pharyngitis, dns abscess, severe sepsis, severe dehydration, airway compromise. plan to tx/monitor as op w/ pcm f/u findings/plan discussed with pt, pt agree/comfortable with plan, return precautions given Lab Data Labs: Lab Results 05/16/21 Range/Units 11:12 Monoscreen Negative (Negative) Strep Screen Presumptive Negative *(Reference Ra
[2021-05-16] MEDS: KETOROLAC 30 MG/ML VIAL (*BKC) IM (11:08)
[2021-05-16 11:53] LABS: Monoscreen Negative (Negative); Negative Monotest Control Negative (Negative); Positive Monotest Control Positive (Positive)
[2021-05-16 12:27] VITALS: BP 137/86; PULSE 88; RESP 18; O2SAT 99
== END 2021-05-16 12:30 | disposition home or self-care (01) ==
PROVIDERS: Emergency Provider Emergency Medicine
DX: J02.9 Acute pharyngitis, unspecified (principal)
CPT/HCPCS: 36415; 86308; 87081; 87880; 96372; 99283; J1885

== ENCOUNTER 2022-01-24 15:29 | Emergency (ER) | payer OTHER, MEDICAID, SELFPAY ==
[2022-01-24 15:42] VITALS: BP 132/67; PULSE 108; RESP 16; TEMP 37.4; O2SAT 99
--- NOTE | 2022-01-24 16:15 | ED.URI ---
HPI - URI/Sore Throat General Chief Complaint: Upper Respiratory Infection Stated Complaint: cold/flu sx Time Seen by Provider: 01/24/22 16:15 Source: patient, RN notes reviewed and old records reviewed Mode of arrival: ambulatory Limitations: no limitations History of Present Illness HPI Narrative: 31-year-old male presents to the [facility] with complaints of cold and flu symptoms that started on , 3 days ago, worse yesterday. Unknown if he has had fevers. Reports some at work is positive for flu. States he has been vomiting but denies abdominal pain. Related Data Allergies Allergy/AdvReac Type Severity Reaction Status Date / Time No Known Allergies Allergy Verified 01/24/22 15:42 Review of Systems Review of Systems: All systems reviewed & are unremarkable except as noted in HPI and below Constitutional: Constitutional: Reports as per HPI, Reports chills, Reports fatigue and Reports fever(s) Eyes: Eyes: Reports no additional eye complaints ENT: Reports as per HPI, Reports nasal congestion and Reports sore throat Cardiovascular: Cardiovascular: Reports no additional cardiovascular complaints, Denies chest pain and Denies dyspnea Respiratory: Respiratory: Reports no additional respiratory complaints, Denies chest congestion, Denies cough and Denies dyspnea Gastrointestinal: Gastrointestinal: Reports no additional gastrointestinal complaints, Denies abdominal pain, Denies nausea and Denies vomiting Musculoskeletal: Musculoskeletal: Reports no additional musculoskeletal complaints Integumentary/Breasts: Skin/Breast: Reports system reviewed and no additional complaints, except as docu Neurologic: Reports system reviewed and no additional complaints, except as documented Psychiatric: Psychiatric: Reports no additional psychiatric complaints Allergic/Immunologic: Allergic/Immunologic: Reports no additional allergic/immunologic complaints PMFSH Past Medical History Medical History Anxiety Depression Social History Social History Substance use: former Substance use type: marijuana Gender identity (if verbalized by the patient): Male Sexual Orientation (if Verbalized by the Patient): Straight or Heterosexual Comments At the time of my signature, I reviewed and agree with the nursing past medical, surgical, social, and family history. There is no relevant family history pertinent to the patient complaint. Exam Const: General: cooperative, no acute distress, well developed, alert, ill appearing acutely (Mild) and well nourished Nutritional Appearance: well nourished and obese Orientation/consciousness: patient oriented x3 Limitations: no limitations HENMT: Head: normal to inspection Ears: hearing grossly normal bilaterally and external ears normal Face/Nose/Sinus: Normal external nose present, Normal nares present, Normal nasal mucous membranes and turbinates present and normal facial exam Face and sinus: normal facial exam Mouth: Yes Normal oral and palatal mucosa present, Yes lip normal and Yes moist mucous membranes Throat: posterior oropharynx normal and uvula midline Eyes: General: appearance normal, both eyes and all related structures Alignment and Position: alignment normal Periorbital: periorbital findings normal Conjunctivae: conjunctivae normal Pupils: Equal, round and reactive pupils present EOM: EOMs intact bilaterally Neck: Neck: normal visual inspection, full ROM, no lymphadenopathy and no meningeal signs Chest: Chest palpation & inspection: normal inspection of the chest Resp: Effort & Inspection: normal respiratory effort and able to speak in complete sentences Auscultation: clear to auscultation bilaterally, no crackles, no rales, no rhonchi and no wheezes Cardio: Rate: regular rate Rhythm: regular rhythm Back/Spine/Pelvis: Cervical Spine: cervical ROM normal Th
== END 2022-01-24 16:52 | disposition home or self-care (01) ==
PROVIDERS: Emergency Provider Nurse Practitioner
DX: J10.1 Influenza due to other identified influenza virus with other respiratory manifestations (principal); Z20.822 Contact with and (suspected) exposure to COVID-19
CPT/HCPCS: 87426; 87804; 99213; C9803; G0463

== ENCOUNTER 2022-01-28 05:38 | Emergency (ER) | payer OTHER, MEDICAID, SELFPAY ==
--- NOTE | ~2022-01-28 | XR_ITS ---
EXAMINATION: XR chest 2V DATE: 01/28/2022 06:38 INDICATION: Cough. TECHNIQUE: Frontal and lateral views of the chest were obtained. COMPARISON: Chest 2 views 04/16/2021 FINDINGS: There is no pneumonia, pleural effusion, or pneumothorax. The heart size is normal. There i s mild chronic anterior wedging of a midthoracic vertebral body. IMPRESSION: 1. No acute cardiopulmonary disease. Reviewed, dictated and finalized at location A. OFFICE AGENT
[2022-01-28 05:40] VITALS: BP 120/71; PULSE 99; RESP 20; TEMP 36.1; O2SAT 98
--- NOTE | 2022-01-28 06:37 | ED.URI ---
HPI - URI/Sore Throat General Chief Complaint: Upper Respiratory Infection Stated Complaint: recent influenza, cough Time Seen by Provider: 01/28/22 06:14 Source: patient Mode of arrival: ambulatory Limitations: no limitations History of Present Illness HPI Narrative: Patient drove himself to the emergency room because coughing up sputum mixed with streaks of blood. Since last night. Patient had cold symptoms 7 days ago, tested positive for the flu 4 days ago. Patient been coughing vigorously over the last 7 days mainly when he lay down flat. Patient on Robitussin DM without improvement. Related Data Allergies Allergy/AdvReac Type Severity Reaction Status Date / Time No Known Allergies Allergy Verified 01/28/22 05:44 Review of Systems Review of Systems: All systems reviewed & are unremarkable except as noted in HPI and below PMFSH Past Medical History Medical History Anxiety Depression Social History Social History Substance use: former Substance use type: marijuana Gender identity (if verbalized by the patient): Male Sexual Orientation (if Verbalized by the Patient): Straight or Heterosexual Exam Narrative: CONSTITUTIONAL: Denies fever, chills, or sweats. EYES: Denies visual changes, redness, or discharge. ENT: Denies rhinorrhea, congestion, sore throat, or otalgia. CARDIOVASCULAR: Denies chest pain, palpitations, or edema. RESPIRATORY: Vigorous coughing GASTROINTESTINAL: Denies abdominal pain, nausea, vomiting, or diarrhea. GENITOURINARY: Denies dysuria or hematuria. SKIN: Denies rash or itching. MUSCULOSKELETAL: Denies back pain, joint pain, or myalgia. NEUROLOGIC: Denies headache, numbness, or weakness. PSYCHIATRIC: Denies anxiety or depression. Course Course Emergency Course: Persistent coughing inducing bloody sputum is my concern. Vital Signs Vital signs: Vital Signs Temperature 36.1 C L 01/28/22 05:40 Pulse Rate 99 01/28/22 05:40 Respiratory Rate 20 01/28/22 05:40 Blood Pressure 120/71 01/28/22 05:40 Pulse Oximetry 98 01/28/22 05:40 Oxygen Delivery Room Air 01/28/22 05:40 Temperature 36.1 C L 01/28/22 05:40 Pulse Rate 99 01/28/22 05:40 Respiratory Rate 20 01/28/22 05:40 Blood Pressure 120/71 01/28/22 05:40 Pulse Oximetry 98 01/28/22 05:40 Oxygen Delivery Room Air 01/28/22 05:40 MDM - URI/Sore Throat Imaging Data Radiologist's impression: Impressions Chest X-Ray 01/28/22 06:42 IMPRESSION: 1. No acute cardiopulmonary disease. Critical Care Time Critical Care Time Critical Care Time: No Discharge Plan Discharge Clinical Impression: Upper respiratory infection, Influenza Patient Disposition: Home, Self-Care Condition: Stable Instructions: Antibiotic Form, Influenza (ED) Additional Instructions: Return if symptoms are worsening , call your family physician for appointment, take Tylenol as as needed for aches and pain, continue home medications., Stop home medications Prescriptions: New benzonatate 200 mg capsule 200 mg PO TID PRN (Reason: cough) Qty: 30 0RF oxymetazoline [Afrin (oxymetazoline)] 0.05 % spray,non-aerosol 2 spray intranasal Q12H PRN (Reason: nasal congestion) 3 Days Qty: 15 0RF Follow-up/Referrals: UNKNOWN,DOCTOR [Primary Care Provider] -
== END 2022-01-28 07:23 | disposition home or self-care (01) ==
PROVIDERS: Emergency Provider Emergency Medicine
DX: J11.1 Influenza due to unidentified influenza virus with other respiratory manifestations (principal)
CPT/HCPCS: 71046; 99283; A9270

== ENCOUNTER 2022-03-06 10:23 | Emergency (ER) | payer OTHER, MEDICAID, SELFPAY ==
[2022-03-06 10:46] VITALS: BP 126/88; PULSE 116; RESP 16; TEMP 36.7; O2SAT 99
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
== END 2022-03-06 11:42 | disposition home or self-care (01) ==
PROVIDERS: Emergency Provider Nurse Practitioner
DX: T24.212A Burn of second degree of left thigh, initial encounter (principal); X08.8XXA Exposure to other specified smoke, fire and flames, initial encounter
CPT/HCPCS: 99213; A9270; G0463

== ENCOUNTER 2022-07-08 12:58 | Emergency (ER) | payer OTHER, MEDICAID, SELFPAY ==
--- NOTE | 2022-07-08 13:10 | ED.URI ---
HPI - URI/Sore Throat General Chief Complaint: Upper Respiratory Infection Stated Complaint: Sore Throat Time Seen by Provider: 07/08/22 13:05 Source: patient Mode of arrival: ambulatory Limitations: no limitations History of Present Illness HPI Narrative: Patient is a 32-year-old male that presents with vague URI symptoms. Patient states he has intermittent sore throat, fatigue and feels like he has allergies but has not taken anything for symptoms. Reports exposure to COVID by family member. Requesting work note. Denies any fever, chills, headache, congestion, ear pain, cough, and nausea, vomiting. Also reports diarrhea Related Data Home Medications Medication Instructions Recorded Confirmed No Home Medications 07/08/22 07/08/22 Allergies Allergy/AdvReac Type Severity Reaction Status Date / Time No Known Allergies Allergy Verified 03/06/22 10:49 Review of Systems Review of Systems: All systems reviewed & are unremarkable except as noted in HPI and below Constitutional: Constitutional: Denies body ache(s), Denies chills, Reports fatigue, Denies fever(s), Denies headache(s), Denies malaise and Denies weakness Eyes: Eyes: Denies blurry vision, Denies itchy eyes and Denies loss of vision ENT: Denies otalgia, Denies headache(s), Denies nasal congestion, Denies sinus pain and Reports sore throat Cardiovascular: Cardiovascular: Denies chest pain, Denies irregular heart rhythm and Denies dyspnea Respiratory: Respiratory: Denies cough and Denies dyspnea Gastrointestinal: Gastrointestinal: Denies abdominal pain, Reports diarrhea, Denies nausea and Denies vomiting Musculoskeletal: Musculoskeletal: Denies back pain, Denies myalgias and Denies arthralgias Integumentary/Breasts: Skin/Breast: Denies pruritus and Denies rash Neurologic: Denies headache(s), Denies loss of vision and Denies weakness Psychiatric: Psychiatric: Reports no additional psychiatric complaints Endocrine: Endocrine: Denies fatigue Allergic/Immunologic: Allergic/Immunologic: Denies itchy eyes PMFSH Past Medical History Medical History Anxiety Depression Social History Social History Substance use: former Substance use type: marijuana Gender identity (if verbalized by the patient): Male Sexual Orientation (if Verbalized by the Patient): Straight or Heterosexual Comments At time of signature, agree with nursing past medical, surgical, social and family history. There is no relevant family history pertinent to the presenting complaint. Exam Const: General: cooperative, healthy appearing, comfortable, no acute distress and well nourished Nutritional Appearance: well nourished Orientation/consciousness: patient oriented x3 Limitations: no limitations HENMT: Head: normal to inspection, normocephalic and atraumatic Ears: hearing grossly normal bilaterally, external ears normal, TM's normal bilaterally, EAC's normal and no periauricular adenopathy Face/Nose/Sinus: Normal external nose present, Normal nasal mucous membranes and turbinates present, normal facial exam, sinuses nontender and face symmetric Face and sinus: normal facial exam, sinuses nontender and face symmetric Mouth: Yes Normal oral and palatal mucosa present, Yes lip normal, Yes tongue normal, Yes Normal salivary glands and ducts present, Yes oropharynx normal and Yes moist mucous membranes Teeth and gingiva: dentition normal Throat: tonsils normal, uvula midline, posterior oropharynx abnormal erythema and postnasal drainage Eyes: General: appearance normal, both eyes and all related structures Alignment and Position: alignment normal and position normal Periorbital: periorbital findings normal Eyelids: eyelids normal Pupils: Equal, round and reactive pupils present Neck: Neck: normal visual inspection, full ROM, no lymphadenopathy and supple Chest: Ches
[2022-07-08 13:12] VITALS: BP 142/78; PULSE 78; RESP 16; TEMP 36.9; O2SAT 99
== END 2022-07-08 14:02 | disposition home or self-care (01) ==
PROVIDERS: Emergency Provider Nurse Practitioner Family
DX: J02.0 Streptococcal pharyngitis (principal); Z20.822 Contact with and (suspected) exposure to COVID-19
CPT/HCPCS: 87081; 87147; 87426; 87880; 99213; C9803; G0463

== ENCOUNTER 2022-10-21 09:01 | Emergency (ER) | payer OTHER, MEDICAID, SELFPAY ==
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
[2022-10-21 09:08] VITALS: BP 125/80; PULSE 80; RESP 16; TEMP 36.7; O2SAT 98
[2022-10-21] MEDS: CYCLOBENZAPRINE HCL 10 MG TABLET PO (12:06)
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
== END 2022-10-21 13:02 | disposition home or self-care (01) ==
PROVIDERS: Emergency Provider Nurse Practitioner Family
DX: S13.4XXA Sprain of ligaments of cervical spine, initial encounter (principal); S39.012A Strain of muscle, fascia and tendon of lower back, initial encounter; M47.816 Spondylosis without myelopathy or radiculopathy, lumbar region; V49.40XA Driver injured in collision with unspecified motor vehicles in traffic accident, initial encounter
CPT/HCPCS: 70450; 72125; 72131; 99284; A9270

== ENCOUNTER 2022-11-14 10:08 | Emergency (ER) | payer OTHER, MEDICAID, SELFPAY ==
--- NOTE | 2022-11-14 10:11 | ED.SKABFB ---
HPI - Skin/Abscess/Foreign Bdy General Chief complaint: Skin/Abscess/Foreign Body Stated complaint: skin irritation Time Seen by Provider: 11/14/22 10:10 Source: patient Mode of arrival: ambulatory Limitations: no limitations History of Present Illness HPI narrative: Marc is a 32-year-old male patient presenting to the clinic today with complaints of a rash x1 week. He reports his daughters had impetigo last week and he has developed sores on his face and abdomen. The sores crusted with yellow honey-colored scab. Mildly tender to palpation Related Data Home Medications Medication Instructions Recorded Confirmed sertraline 50 mg tablet 50 mg PO DAILY 11/14/22 11/14/22 Allergies Allergy/AdvReac Type Severity Reaction Status Date / Time No Known Allergies Allergy Verified 11/14/22 10:18 Review of Systems Review of Systems: Pertinent positives per HPI. Patient denies any fever, chills, headache, visual changes, dizziness, cough, runny nose, sore throat, shortness of breath, chest pain, palpitations, nausea, vomiting, diarrhea, constipation, abdominal pain, or any urinary issues. PMFSH Past Medical History Medical History Anxiety Depression Social History Social History Substance use: former Substance use type: marijuana Gender identity (if verbalized by the patient): Male Sexual Orientation (if Verbalized by the Patient): Straight or Heterosexual Comments At the time of my signature, I reviewed and agree with the nursing past medical, surgical, social, and family history. There is no relevant family history pertinent to the patient complaint. Exam Narrative: General: Well-developed, well nourished, in no apparent distress Head: Normocephalic, atraumatic. Cardio: Regular rate and rhythm, s1 and s2 normal, no murmur appreciated. Resp: Clear to auscultation bilaterally, no rhonchi, rales, wheezing or rubs. Integumentary: [place], warm, and dry, intact without lesion, 4 areas of red right patches rash with yellow honey crusting to face in abdomen. Course Course Emergency Course: Portions of this record may have been created with voice recognition software. Level of Care: Express Care Visit Vital Signs Vital signs: Vital Signs Temperature 35.7 C L 11/14/22 10:22 Pulse Rate 77 11/14/22 10:22 Respiratory Rate 16 11/14/22 10:22 Blood Pressure 123/77 11/14/22 10:22 Pulse Oximetry 99 11/14/22 10:22 Oxygen Delivery Room Air 11/14/22 10:22 Temperature 35.7 C L 11/14/22 10:22 Pulse Rate 77 11/14/22 10:22 Respiratory Rate 16 11/14/22 10:22 Blood Pressure 123/77 11/14/22 10:22 Pulse Oximetry 99 11/14/22 10:22 Oxygen Delivery Room Air 11/14/22 10:22 Vital signs reviewed MDM - Skin/Abscess/Foreign Bdy MDM Narrative Medical decision making narrative: At the time of visit patient is resting comfortably on the exam table. I suspect patient has impetigo. Prescription for Keflex and mupirocin cream was prescribed as the patient has multiple spots. Supportive measures were discussed with the patient he voiced understanding discharge instructions and agrees to treatment plan. Differential Diagnosis Differential diagnosis: Likely abscess of skin or subcutaneous tissue, viral exanthem, urticaria, herpes zoster, cellulitis, eczema, insect bites, impetigo and contact dermatitis Discharge Plan Discharge Clinical Impression: Impetigo Patient Disposition: Home, Self-Care Condition: Stable Instructions: Antibiotic Form, Impetigo (ED) Additional Instructions: Apply mupirocin cream as directed Take Keflex as directed Avoid scratching as this can cause rash to spread May take benadryl 25-50mg every 6 hours as needed for itching. Do not share towels Follow up with your PCP in 3-5 days if symptoms persist or sooner if they
[2022-11-14 10:22] VITALS: BP 123/77; PULSE 77; RESP 16; TEMP 35.7; O2SAT 99
== END 2022-11-14 10:32 | disposition home or self-care (01) ==
LOC: EXPCOLL 10:15
PROVIDERS: Emergency Provider Nurse Practitioner Family
DX: L01.00 Impetigo, unspecified (principal); F41.9 Anxiety disorder, unspecified; F32.A Depression, unspecified
CPT/HCPCS: 99213; G0463

== ENCOUNTER 2023-10-01 18:13 | Emergency (ER) | payer OTHER, MEDICAID, SELFPAY ==
[2023-10-01 18:28] VITALS: BP 138/77; PULSE 124; RESP 16; TEMP 36.4; O2SAT 98
[2023-10-01 18:55] LABS: EDSTREPNEGPOS1 Negative
--- NOTE | 2023-10-01 18:56 | ED.URI ---
HPI - URI/Sore Throat General Chief Complaint: Upper Respiratory Infection Stated Complaint: Sore Throat/Weakness Time Seen by Provider: 10/01/23 18:40 Source: patient, RN notes reviewed and old records reviewed Mode of arrival: ambulatory Limitations: no limitations History of Present Illness HPI Narrative: Patient presents with complaints of sore throat and runny nose. He states symptoms have been present for about a week. He has been using throat spray and lozenges. He has not been taking any Tylenol or ibuprofen. He does report he had a cough earlier in the week but this has resolved. He denies any fever, chills, sweats. He does believe that his throat is swollen. No drooling, no stridor. Able to speak in complete sentences without any drooling. No other concerns or complaints at this time. Related Data Allergies Allergy/AdvReac Type Severity Reaction Status Date / Time No Known Allergies Allergy Verified 10/01/23 18:16 Review of Systems Review of Systems: All systems reviewed & are unremarkable except as noted in HPI and below Constitutional: Constitutional: Reports as per HPI and Reports no additional constitutional complaints ENT: Reports system reviewed and no additional complaints, except as documented, Reports as per HPI, Reports nasal discharge and Reports sore throat Cardiovascular: Cardiovascular: Reports no additional cardiovascular complaints Respiratory: Respiratory: Reports no additional respiratory complaints Gastrointestinal: Gastrointestinal: Reports no additional gastrointestinal complaints [facility] Past Medical History Medical History Anxiety Depression Social History Social History Substance use: former Substance use type: marijuana Gender identity (if verbalized by the patient): Male Sexual Orientation (if Verbalized by the Patient): Straight or Heterosexual Exam Const: General: cooperative, no acute distress, alert and awake Orientation/consciousness: oriented to person, oriented to place and oriented to time HENMT: Head: normal to inspection Ears: Abnormal EAC present excessive cerumen bilateral Mouth: Yes Normal oral and palatal mucosa present and Yes moist mucous membranes Throat: posterior oropharynx normal, tonsils normal and uvula midline Resp: Effort & Inspection: normal respiratory effort and able to speak in complete sentences Auscultation: clear to auscultation bilaterally, no crackles, no rales, no rhonchi and no wheezes Cardio: Palpation: normal PMI Rate: regular rate Rhythm: regular rhythm Heart sounds: S1 normal heart sound present and S2 normal heart sound present Neuro: General: oriented to person, oriented to place and oriented to time Cranial nerves: Yes CN's II-XII intact bilaterally Psych: Appearance: grossly normal Thought process: Normal thought process present Insight: Good insight present (Psych) Judgement: Good judgement present (Psych) Course Course Level of Care: Express Care Visit Vital Signs Vital signs: Vital Signs Temperature 97.5 F L 10/01/23 18:28 Pulse Rate 124 H 10/01/23 18:28 Respiratory Rate 16 10/01/23 18:28 Blood Pressure 138/77 10/01/23 18:28 Pulse Oximetry 98 10/01/23 18:28 Oxygen Delivery Room Air 10/01/23 18:28 Temperature 97.5 F L 10/01/23 18:28 Pulse Rate 124 H 10/01/23 18:28 Respiratory Rate 16 10/01/23 18:28 Blood Pressure 138/77 10/01/23 18:28 Pulse Oximetry 98 10/01/23 18:28 Oxygen Delivery Room Air 10/01/23 18:28 MDM - URI/Sore Throat MDM Narrative Medical decision making narrative: Negative flu, negative COVID, negative strep. Pulse 90 on auscultation. Blood pressure is elevated at 138/77. Patient is to follow up with primary care provider. He did have a reassuring physical exam. He is advised to use [id number] preparations per package ins
[2023-10-01 19:20] VITALS: BP 120/65; PULSE 81; RESP 18; O2SAT 100
[2023-10-01 19:29] LABS: EDINFLUASCREEN Negative; EDINFLUBSCREEN Negative
== END 2023-10-01 19:20 | disposition home or self-care (01) ==
PROVIDERS: Emergency Provider Nurse Practitioner Family
DX: J06.9 Acute upper respiratory infection, unspecified (principal); Z20.822 Contact with and (suspected) exposure to COVID-19
CPT/HCPCS: 87081; 87426; 87804; 87880; 99213; G0463

== ENCOUNTER 2023-11-13 16:11 | Emergency (ER) | payer OTHER, MEDICAID, SELFPAY ==
[2023-11-13 16:35] VITALS: BP 133/76; PULSE 91; RESP 16; TEMP 36; O2SAT 99
--- NOTE | 2023-11-13 16:37 | ED.EYEPROB ---
HPI - Eye Problem General Chief complaint: Eye Problems Stated complaint: right eye issue Time Seen by Provider: 11/13/23 16:38 Source: patient, RN notes reviewed and old records reviewed Mode of arrival: ambulatory Limitations: no limitations History of Present Illness HPI Narrative: Patient presents with complaints of right eye pain, photophobia, excessive tearing. He reports that he left a contact in the eye for 2 months. He did take the contact out when he began having pain. Denies any injury or trauma. Denies any purulent discharge. Denies all other complaints at this time. Related Data Allergies Allergy/AdvReac Type Severity Reaction Status Date / Time No Known Allergies Allergy Verified 10/01/23 18:16 Review of Systems Review of Systems: All systems reviewed & are unremarkable except as noted in HPI and below Constitutional: Constitutional: Reports no additional constitutional complaints Eyes: Eyes: Reports as per HPI, Reports irritation, Reports eye pain and Reports photophobia ENT: Reports system reviewed and no additional complaints, except as documented Cardiovascular: Cardiovascular: Reports no additional cardiovascular complaints Respiratory: Respiratory: Reports no additional respiratory complaints Gastrointestinal: Gastrointestinal: Reports no additional gastrointestinal complaints [facility] Past Medical History Medical History Anxiety Depression Social History Social History Substance use: former Substance use type: marijuana Gender identity (if verbalized by the patient): Male Sexual Orientation (if Verbalized by the Patient): Straight or Heterosexual Comments At the time of my signature, I reviewed and agree with the nursing past medical, surgical, social, and family history. There is no relevant family history pertinent to the patient complaint. Exam Const: General: cooperative, no acute distress, alert and awake Orientation/consciousness: oriented to person, oriented to place and oriented to time HENMT: Head: normal to inspection Eyes: Periorbital: periorbital findings normal Eyelids: eyelids normal Conjunctivae: conjunctivae normal Sclera: scleral abnormality right scleral injection Cornea: corneas abnormal on the right fluorescein used and abrasion linear and at the following clock position (12); with no foreign body noted Resp: Effort & Inspection: normal respiratory effort and able to speak in complete sentences Auscultation: clear to auscultation bilaterally, no crackles, no rales, no rhonchi and no wheezes Cardio: Palpation: normal PMI Rate: regular rate Rhythm: regular rhythm Heart sounds: S1 normal heart sound present and S2 normal heart sound present Neuro: General: oriented to person, oriented to place and oriented to time Cranial nerves: Yes CN's II-XII intact bilaterally Psych: Appearance: grossly normal Thought process: Normal thought process present Insight: Good insight present (Psych) Judgement: Good judgement present (Psych) Course Course Level of Care: Express Care Visit Vital Signs Vital signs: Vital Signs Temperature 96.8 F L 11/13/23 16:35 Pulse Rate 91 11/13/23 16:35 Respiratory Rate 16 11/13/23 16:35 Blood Pressure 133/76 11/13/23 16:35 Pulse Oximetry 99 11/13/23 16:35 Oxygen Delivery Room Air 11/13/23 16:35 Temperature 96.8 F L 11/13/23 16:35 Pulse Rate 91 11/13/23 16:35 Respiratory Rate 16 11/13/23 16:35 Blood Pressure 133/76 11/13/23 16:35 Pulse Oximetry 99 11/13/23 16:35 Oxygen Delivery Room Air 11/13/23 16:35 Reviewed MDM - Eye Problem MDM Narrative Medical decision making narrative: Patient with Topical anesthetic was instilled with good anesthesia using 1gtt of opth anesthetic agent (tetracaine). Fluorescein stain of the R/L eye was performed without uptake of dye. No ep
== END 2023-11-13 17:58 | disposition home or self-care (01) ==
PROVIDERS: Emergency Provider Nurse Practitioner Family
DX: S05.01XA Injury of conjunctiva and corneal abrasion without foreign body, right eye, initial encounter (principal); X58.XXXA Exposure to other specified factors, initial encounter
CPT/HCPCS: 99213; A9270; G0463

== ENCOUNTER 2024-02-04 11:05 | Emergency (ER) | payer MEDICAID, SELFPAY ==
[2024-02-04 11:14] VITALS: BP 136/91; PULSE 96; RESP 16; TEMP 35.6; O2SAT 99
--- NOTE | 2024-02-04 11:53 | ED_ITS ---
HPI - URI/Sore Throat General Chief Complaint: Upper Respiratory Infection Stated Complaint: Sinus/Cough Time Seen by Provider: 02/04/24 11:53 Source: patient, RN notes reviewed and old records reviewed Mode of arrival: ambulatory Limitations: no limitations History of Present Illness HPI Narrative: Patient presents with complaints of runny nose, cough, nausea, stomach cramping, diarrhea. Symptoms have been present for about 3 days. He reports that the cramping and diarrhea have gotten better instead of worse over the past few days. He reports that he is more tired than normal. He has been taking multiple [id number] medications for his symptoms with minimal relief. He is requesting a work note. He is not in any distress at this time Related Data Home Medications ?Medication ?Instructions ?Recorded ?Confirmed ?Last Taken ?Type bupropion HCl 150 mg tablet,12 hr 150 mg PO Q12H 02/04/24 02/04/24 Unknown History sustained-release dextroamphetamine-amphetamine ER 20 mg PO .QD 02/04/24 02/04/24 Unknown History 20 mg 24hr capsule,extend release Allergies Allergy/AdvReac Type Severity Reaction Status Date / Time No Known Allergies Allergy Verified 02/04/24 11:47 Review of Systems Review of Systems: All systems reviewed & are unremarkable except as noted in HPI and below Constitutional: Constitutional: Reports no additional constitutional complaints ENT: Reports system reviewed and no additional complaints, except as documented, Reports nasal congestion and Reports nasal discharge Cardiovascular: Cardiovascular: Reports no additional cardiovascular complaints Respiratory: Respiratory: Reports no additional respiratory complaints and Reports cough Gastrointestinal: Gastrointestinal: Reports no additional gastrointestinal complaints, Reports GI cramping and Reports diarrhea PMFSH Past Medical History Medical History Anxiety Depression Social History Social History Substance use: former Substance use type: marijuana Gender identity (if verbalized by the patient): Male Sexual Orientation (if Verbalized by the Patient): Straight or Heterosexual Comments At the time of my signature, I reviewed and agree with the nursing past medical, surgical, social, and family history. There is no relevant family history pertinent to the patient complaint. Exam Const: General: cooperative, no acute distress, alert and awake Orientation/consciousness: oriented to person, oriented to place and oriented to time HENMT: Head: normal to inspection Ears: TM's normal bilaterally Mouth: Yes moist mucous membranes Throat: posterior oropharynx abnormal erythema Resp: Effort & Inspection: normal respiratory effort and able to speak in complete sentences Auscultation: clear to auscultation bilaterally, no crackles, no rales, no rhonchi and no wheezes Cardio: Palpation: normal PMI Rate: regular rate Rhythm: regular rhythm Heart sounds: S1 normal heart sound present and S2 normal heart sound present Neuro: General: oriented to person, oriented to place and oriented to time Cranial nerves: Yes CN's II-XII intact bilaterally Psych: Appearance: grossly normal Thought process: Normal thought process present Insight: Good insight present (Psych) Judgement: Good judgement present (Psych) Course Course Level of Care: Express Care Visit Vital Signs Vital signs: Vital Signs Temperature 96.1 F L 02/04/24 11:14 Pulse Rate 96 02/04/24 11:14 Respiratory Rate 16 02/04/24 11:14 Blood Pressure 136/91 H 02/04/24 11:14 Pulse Oximetry 99 02/04/24 11:14 Oxygen Delivery Room Air 02/04/24 11:14 Temperature 96.1 F L 02/04/24 11:14 Pulse Rate 96 02/04/24 11:14 Respiratory Rate 16 02/04/24 11:14 Blood Pressure 136/91 H 02/04/24 11:14 Pulse Oximetry 99 02/04/24 11:14 Oxygen Delivery Room Air 02/04/24 11:14 Reviewed MDM - URI/Sore Throat MDM Narrative Medical decision making narrative: Negative COVID, negative flu. Patient nontoxic appearing. Stable for discharge home. Symptoms likely viral in origin, treat symptomatically. Discharge instructions reviewed with patient, as well as provided in writing per nursing staff. The instructions also include specific and strict return/GO TO THE ER as well as f/u information. All questions have been answered, and the patient deny any further questions with discharge and discharge plan. Some parts of this dictation were generated by voice recognition software and may contain typographical and/or grammatical inaccuracies. Differential Diagnosis Differential diagnosis: Likely upper respiratory infection, sinusitis, viral infection and influenza Medical Records Attestation: I reviewed the patient's medical records. Lab Data Attestation: I reviewed the patient's lab results. Discharge Plan Discharge Clinical Impression: Viral infection Patient Disposition: Home, Self-Care Condition: Stable Instructions: Antibiotic Form, Cold Symptoms (ED) Additional Instructions: Plenty of rest and fluids. Take [id number] medications to treat her symptoms, follow package instructions. Emergency department for new or worsening symptoms. Follow-up with your primary care provider Patient Language: Macedonian Prescriptions: No Action Tobrex 0.3 % ointment 1 applic RIGHT EYE Q4H 7 Days Qty: 3.5 0RF Rx Instructions: space evenly during waking hours bupropion HCl 150 mg tablet sustained-release 12 hr 150 mg PO Q12H dextroamphetamine-amphetamine 20 mg capsule,extended release 24hr 20 mg PO .QD Follow-up/Referrals: [facility] [Primary Care Provider] - 2 Weeks Stand Alone Forms: Work/School Release IP Time of Disposition: 12:13
[2024-02-04 12:21] LABS: EDCOVIDSCREEN Negative (Negative); EDINFLUASCREEN Negative (Negative); EDINFLUBSCREEN Negative (Negative)
== END 2024-02-04 12:40 | disposition home or self-care (01) ==
PROVIDERS: Emergency Provider Nurse Practitioner Family
DX: B34.9 Viral infection, unspecified (principal); Z20.822 Contact with and (suspected) exposure to COVID-19; F41.9 Anxiety disorder, unspecified; F32.A Depression, unspecified
CPT/HCPCS: 87426; 87804; 99212; G0463

== ENCOUNTER 2024-06-30 08:41 | Emergency (ER) | payer OTHER, SELFPAY ==
--- NOTE | 2024-06-30 08:45 | ED.SKABFB ---
HPI - Skin/Abscess/Foreign Bdy General Chief complaint: Animal Bite Stated complaint: Insect Bite Time Seen by Provider: 06/30/24 08:45 Source: patient Mode of arrival: ambulatory Limitations: no limitations History of Present Illness HPI narrative: Marc is a 34-year-old male patient presenting to the clinic today with complaints of a tick bite to the right posterior parietal scalp. States that he noticed yesterday and was able to pull it off. He was able to pull the tick off but he is concerned about any remnants of the tick being in his scalp. He states he cannot see the area as well because is within his hairline. He denies any fevers, chills, joint pain, or body aches. Related Data Home Medications ?Medication ?Instructions ?Recorded ?Confirmed ?Last Taken ?Type dextroamphetamine-amphetamine ER 20 mg PO .QD 02/04/24 02/04/24 Unknown History 20 mg 24hr capsule,extend release Allergies Allergy/AdvReac Type Severity Reaction Status Date / Time No Known Allergies Allergy Verified 06/30/24 09:01 Review of Systems Review of Systems: Pertinent positives per HPI. Patient denies any fever, chills, rash, headache, visual changes, dizziness, cough, runny nose, sore throat, shortness of breath, chest pain, palpitations, nausea, vomiting, diarrhea, constipation, abdominal pain, or any urinary issues. PMFSH Past Medical History Medical History Anxiety Depression Social History Social History Substance use: former Substance use type: marijuana Gender identity (if verbalized by the patient): Male Sexual Orientation (if Verbalized by the Patient): Straight or Heterosexual Comments At the time of my signature, I reviewed and agree with the nursing past medical, surgical, social, and family history. There is no relevant family history pertinent to the patient complaint. Exam Narrative: General: Well-developed, well nourished, in no apparent distress Head: Normocephalic, atraumatic. Cardio: Regular rate and rhythm, s1 and s2 normal, no murmur appreciated. Resp: Clear to auscultation bilaterally, no rhonchi, rales, wheezing or rubs. Integumentary: [place], warm, and dry, no rashes. Tick bite to the right posterior parietal scalp without redness, mild induration, mildly tender to palpation, no target like lesion-no visualized remnants remained in the scalp Course Course Emergency Course: Portions of this record may have been created with voice recognition software. Level of Care: Express Care Visit Vital Signs Vital signs: Vital Signs Temperature 36.6 C 06/30/24 08:53 Pulse Rate 98 06/30/24 08:53 Respiratory Rate 20 06/30/24 08:53 Blood Pressure 114/82 06/30/24 08:53 Pulse Oximetry 98 06/30/24 08:53 Oxygen Delivery Room Air 06/30/24 08:53 Temperature 36.6 C 06/30/24 08:53 Pulse Rate 98 06/30/24 08:53 Respiratory Rate 20 06/30/24 08:53 Blood Pressure 114/82 06/30/24 08:53 Pulse Oximetry 98 06/30/24 08:53 Oxygen Delivery Room Air 06/30/24 08:53 Vital signs reviewed MDM - Skin/Abscess/Foreign Bdy MDM Narrative Medical decision making narrative: At the time of visit patient is resting comfortably on the exam table. Patient appears to be nontoxic. Plan: I suspect patient has a tick bite to the right parietal posterior scalp. Will give doxycycline for prophylaxis. No obvious sign tick remnants in the skin of the scalp. Supportive measures were discussed with the patient and they voiced understanding discharge instructions and agrees to treatment plan. Return precautions reviewed Differential Diagnosis Differential diagnosis: Likely abscess of skin or subcutaneous tissue, viral exanthem, dermatophytosis, urticaria, herpes zoster, allergic reaction to drug, cellulitis, eczema, insect bites, impetigo and contact dermatitis Discharge Plan Discharge Clinical Impression: Tick bite Patient Disposition: Home Condition: Stable Instructions: Antibiotic Form, Tick Bite (ED) Additional Instructions: No visual sign remained tick particles Take doxycycline as prescribed Keep the area clean and dry May take Tylenol/Motrin as needed for pain or fever. Go to [facility] symptoms worsen-lethargy, weakness, confusion, joint pain, high fever not controlled by Tylenol or Motrin, shortness of breath, or chest pain. Patient Language: [place] Prescriptions: New doxycycline monohydrate 100 mg capsule 200 mg PO DAILY 1 Days Qty: 2 0RF No Action Tobrex 0.3 % ointment 1 applic RIGHT EYE Q4H 7 Days Qty: 3.5 0RF Rx Instructions: space evenly during waking hours dextroamphetamine-amphetamine 20 mg capsule,extended release 24hr 20 mg PO .QD Follow-up/Referrals: UNKNOWN,DOCTOR [Non-Staff] - Time of Disposition: 09:02 Quality NIHSS Nursing Documentation ED NIHSS nursing documentation: reviewed/agree
[2024-06-30 08:53] VITALS: BP 114/82; PULSE 98; RESP 20; TEMP 36.6; O2SAT 98
== END 2024-06-30 09:10 | disposition home or self-care (01) ==
PROVIDERS: Emergency Provider Nurse Practitioner Family
DX: S00.06XA Insect bite (nonvenomous) of scalp, initial encounter (principal); W57.XXXA Bitten or stung by nonvenomous insect and other nonvenomous arthropods, initial encounter
CPT/HCPCS: 99213; G0463